=== PATIENT | male | born 1965 | race Hispanic/Latino ===

== ENCOUNTER 2018-12-30 20:53 | Inpatient (IN) | payer OTHER ==
[~2018-12-30] VITALS: Ht 170.2 cm; Wt 67.0 kg
[2018-12-30 21:21] LABS: BASOPHILS % (AUTO) 1.1 % (0.0-5.0); HEMATOCRIT 26.7 % (42-54); LYMPHOCYTES % (AUTO) 15.4 % (21.0-51.0); MEAN CORPUSCULAR HEMOGLOBIN 33.8 pg (27.0-33.0); MEAN CORPUSCULAR HGB CONC 33.7 g/dL (32.0-36.0); MEAN CORPUSCULAR VOLUME 100.3 fL (79-99); MONOCYTES % (AUTO) 13.1 % (3.0-13.0); NEUTROPHILS % (AUTO) 64.4 % (40.0-77.0); NUCLEATED RED BLOOD CELLS 0.1 % (0.0-0.19); PLATELET COUNT (AUTO) 83 K/uL (130-400); RED BLOOD CELL COUNT(AUTO) 2.66 MIL/uL (4.50-6.20); RED CELL DISTRIBUTION WIDTH 16.4 % (11.0-15.5); WHITE BLOOD COUNT (AUTO) 3.7 K/uL (4.8-10.8)
[2018-12-30 21:32] LABS: APPEARANCE,URINE Clear (CLEAR); BILIRUBIN,URINE Small (NEGATIVE); COLOR,URINE Dark Yellow (YELLOW); GLUCOSE, URINE (UA) Negative (NEGATIVE); KETONES,URINE Negative (NEGATIVE); LEUKOCYTE ESTERASE ,URINE Trace (NEGATIVE); NITRATE,URINE Negative (NEGATIVE); OCCULT BLOOD,URINE Negative (NEGATIVE); PROTEIN,URINE Trace mg/dL (NEGATIVE)
[2018-12-30 21:34] LABS: CARBON DIOXIDE 25 mmol/L (21-32); CHLORIDE 107 mmol/L (101-111); CREATININE 0.8 mg/dL (0.5-1.5); GLOMERULAR FILTR. RATE CALC 107 mL/min (>60); GLUCOSE,RANDOM 126 mg/dL (70-105); POTASSIUM 3.6 mmol/L (3.5-5.1); SODIUM SERUM 137 mmol/L (136-145); UREA NITROGEN, BLOOD 13 mg/dL (7-18)
[2018-12-30 21:37] LABS: INR 1.64 (0.85-1.15); PARTIAL THROMBOPLASTIN TIME 44.1 SEC (26.3-35.5); PROTHROMBIN TIME 17.1 SEC (9.6-11.6)
[2018-12-30 21:38] LABS: ALANINE AMINOTRANSFERASE 35 U/L (12-78); ALBUMIN 1.4 g/dL (3.5-5.0); ASPARTATE AMINOTRANSFERASE 53 U/L (10-37); BILIRUBIN,DIRECT 0.9 mg/dL (0.0-0.3); BILIRUBIN,TOTAL 1.8 mg/dL (0.2-1.0); LIPASE 233 U/L (114-286); TOTAL PROTEIN, SERUM 6.2 g/dL (6.0-8.3)
[2018-12-30 21:40] LABS: AMPHET/METH SCREEN,URINE NEGATIVE (NEGATIVE); BARBITURATE SCREEN, URINE NEGATIVE (NEGATIVE); BENZODIAZEPINES SCREEN,URINE NEGATIVE (NEGATIVE); CANNABINOID SCREEN,URINE NEGATIVE (NEGATIVE); COCAINE SCREEN,URINE NEGATIVE (NEGATIVE); OPIATE SCREEN,URINE NEGATIVE (NEGATIVE); PHENCYCLIDINE SCREEN,URINE NEGATIVE (NEGATIVE)
[2018-12-30 21:41] LABS: ALCOHOL, BLOOD < 3 mg/dL (0-10)
[2018-12-30 21:41] LABS: BACTERIA,URINE Rare /HPF (None Seen); RBC,URINE 0-1 /HPF (0-1); YEAST,URINE BUDDING Few /HPF (None Seen)
[2018-12-30 21:42] LABS: MUCUS,URINE Few LPF (None Seen); SQUAMOUS EPITHELIAL CELL,UR Rare /HPF (0-2)
[2018-12-30 22:16] LABS: PLATELET MORPHOLOGY COMMENT DECREASED
[2018-12-31] MEDS ORDERED: HYDROCODONE/ACETAMINOPHEN 5/325 MG TAB PO PRN ×2 (00:15)
[2018-12-31] MEDS ORDERED: ONDANSETRON HCL 4 MG/2 ML VIAL IV PRN (00:15)
[2018-12-31] MEDS ORDERED: ACETAMINOPHEN 325 MG TAB PO PRN ×2 (00:15)
[2018-12-31] MEDS ORDERED: FAMOTIDINE/PF 20 MG/2 ML VIAL IV ONE (08:26)
[2018-12-31] MEDS ORDERED: FUROSEMIDE 10 MG/ML 2ML VIAL ONE (08:26)
[2018-12-31] MEDS ORDERED: ENOXAPARIN SODIUM 30 MG/0.3 ML SQ ONE (08:26)
[2018-12-31] MEDS ORDERED: ENOXAPARIN SODIUM 30 MG/0.3 ML SQ SCH (09:00)
--- NOTE | 2018-12-31 10:04 | NUR ---
YANETH Aparicio met with pt who states that he was at [facility] in [place] for 2weeks and then was dc to his parents care in [place]. Pt states he arrived yesterday and was brought here last night because of his swelling. Pt states he is able to preform ADLS on his own ,uses walker. Pt is from [place], , unemployed. Brother Alex Andre is ER contact [phone] or sister in law Kellee Andre [phone]. Plan is home with family. Addendum: 12/31/18 at 1007 by EMILIA JACKSON Amended: Links added.
[2018-12-31 13:40] VITALS: BP 112/67
[2018-12-31 16:00] VITALS: BP 112/66
[2018-12-31] MEDS ORDERED: LEVO750T21 PO (18:28)
[2018-12-31] MEDS ORDERED: PANT40TA25 PO (18:28)
[2018-12-31] MEDS ORDERED: POTA-9 PO (18:28)
[2018-12-31] MEDS ORDERED: FURO20TA4 PO (18:28)
[2018-12-31] MEDS ORDERED: SPIR25TA6 PO (18:28)
[2018-12-31] MEDS ORDERED: LACT10SO9 PO (18:28)
--- NOTE | 2018-12-31 18:31 | NUR ---
PLATELET COUNT REPPORTED TO DR. LAMBERT STATED TO HOLD LOVENOX
[2018-12-31 20:00] VITALS: BP 112/63
[2018-12-31] MEDS: FAMOTIDINE/PF 20 MG/2 ML VIAL IV SCH (22:58)
[2018-12-31] MEDS: FUROSEMIDE 10 MG/ML 2ML VIAL IV SCH (22:58)
[2019-01-01] VITALS: BP 106/64
[2019-01-01 04:00] VITALS: BP 108/55
[2019-01-01 07:00] VITALS: BP 110/60
[2019-01-01] MEDS: FAMOTIDINE/PF 20 MG/2 ML VIAL IV SCH ×2 (09:02→21:52)
[2019-01-01] MEDS: FUROSEMIDE 10 MG/ML 2ML VIAL IV SCH ×2 (09:03→21:52)
[2019-01-01 11:00] VITALS: BP 105/58
[2019-01-01] MEDS ORDERED: LACTULOSE 20 GM/30 ML UDCUP PO SCH (11:00)
[2019-01-01 11:17] LABS: BASOPHILS % (AUTO) 1.4 % (0.0-5.0); EOSINOPHILS % (AUTO) 7.6 % (0.0-8.0); HEMATOCRIT 25.2 % (42-54); LYMPHOCYTES % (AUTO) 23.3 % (21.0-51.0); MEAN CORPUSCULAR HGB CONC 34.2 g/dL (32.0-36.0); MEAN CORPUSCULAR VOLUME 99.4 fL (79-99); MONOCYTES % (AUTO) 15.4 % (3.0-13.0); NEUTROPHILS % (AUTO) 52.3 % (40.0-77.0); NUCLEATED RED BLOOD CELLS 0.1 % (0.0-0.19); PLATELET COUNT (AUTO) 78 K/uL (130-400); RED BLOOD CELL COUNT(AUTO) 2.53 MIL/uL (4.50-6.20); RED CELL DISTRIBUTION WIDTH 16.3 % (11.0-15.5)
[2019-01-01 11:32] LABS: CREATININE 0.7 mg/dL (0.5-1.5); POTASSIUM 3.4 mmol/L (3.5-5.1)
[2019-01-01 11:37] LABS: ALBUMIN 1.3 g/dL (3.5-5.0); BILIRUBIN,TOTAL 1.4 mg/dL (0.2-1.0); TOTAL PROTEIN, SERUM 5.6 g/dL (6.0-8.3)
[2019-01-01 12:49] LABS: EOSINOPHILS % (MANUAL) 11 % (1-6); LYMPHOCYTES % (MANUAL) 23 % (22-44); MAN.DIFF COMMENT-IMPRESSION MANUAL DIFFERENTIAL; MONOCYTES % (MANUAL) 6 % (2-9); PLATELET MORPHOLOGY COMMENT DECREASED; SEGMENTED NEUTROPHILS % 60 % (40-70)
[2019-01-01] MEDS: LACTULOSE 20 GM/30 ML UDCUP PO SCH ×2 (15:37→21:52)
[2019-01-01 16:00] VITALS: BP 111/67
[2019-01-01 20:00] VITALS: BP 100/63
[2019-01-02] VITALS: BP 112/69
[2019-01-02 04:00] VITALS: BP 114/68
[2019-01-02] MEDS: LACTULOSE 20 GM/30 ML UDCUP PO SCH ×3 (06:18→18:13)
[2019-01-02 07:00] VITALS: BP 112/63
[2019-01-02] MEDS: FUROSEMIDE 10 MG/ML 2ML VIAL IV SCH ×2 (08:23→21:53)
[2019-01-02] MEDS: FAMOTIDINE/PF 20 MG/2 ML VIAL IV SCH ×2 (08:23→21:51)
[2019-01-02 11:00] VITALS: BP 112/63
[2019-01-02] MEDS ORDERED: LACTULOSE 20 GM/30 ML UDCUP PO SCH (11:00)
[2019-01-02] MEDS ORDERED: POTASSIUM CHLORIDE 20 MEQ ERTAB PO SCH (11:00)
[2019-01-02 16:00] VITALS: BP 108/67
[2019-01-02 20:00] VITALS: BP 112/66
[2019-01-03] VITALS (13 sets, daily range): BP systolic 97–111; BP diastolic 56–70
[2019-01-03] MEDS: LACTULOSE 20 GM/30 ML UDCUP PO SCH ×4 (01:19→23:57)
[2019-01-03 06:17] LABS: HEMATOCRIT 25.8 % (42-54); MEAN CORPUSCULAR HEMOGLOBIN 34.5 pg (27.0-33.0); MEAN CORPUSCULAR HGB CONC 34.2 g/dL (32.0-36.0); MEAN CORPUSCULAR VOLUME 100.8 fL (79-99); PLATELET COUNT (AUTO) 78 K/uL (130-400); RED BLOOD CELL COUNT(AUTO) 2.56 MIL/uL (4.50-6.20); RED CELL DISTRIBUTION WIDTH 16.1 % (11.0-15.5); WHITE BLOOD COUNT (AUTO) 2.5 K/uL (4.8-10.8)
[2019-01-03 06:36] LABS: ALBUMIN 1.4 g/dL (3.5-5.0); BILIRUBIN,TOTAL 1.6 mg/dL (0.2-1.0); CREATININE 0.8 mg/dL (0.5-1.5); POTASSIUM 3.3 mmol/L (3.5-5.1)
[2019-01-03 07:29] LABS: BASOPHILS % (MANUAL) 1 % (0-2); EOSINOPHILS % (MANUAL) 3 % (1-6); LYMPHOCYTES % (MANUAL) 20 % (22-44); MAN.DIFF COMMENT-IMPRESSION MANUAL DIFFERENTIAL; MONOCYTES % (MANUAL) 6 % (2-9); SEGMENTED NEUTROPHILS % 70 % (40-70)
[2019-01-03 07:30] LABS: PLATELET MORPHOLOGY COMMENT DECREASED
--- NOTE | 2019-01-03 08:18 | NUR ---
PARACENTESIS BY IR CONSENT SIGNED BY PATIENT FOR PARACENTESIS. SISTER IN LAW- NORMA CALLED AND INFORMED OF PROCEDURE WELL. ENDORSED POSSIBLE PROCEDURE TO DAY SHIFT NURSE, FAN Gee RN
[2019-01-03] MEDS: FAMOTIDINE/PF 20 MG/2 ML VIAL IV SCH ×2 (08:59→21:54)
[2019-01-03] MEDS: FUROSEMIDE 10 MG/ML 2ML VIAL IV SCH ×2 (09:00→21:55)
[2019-01-03] MEDS ORDERED: POTASSIUM CHLORIDE 10MEQ/100ML 100 ML IV PRN (11:30)
[2019-01-03] MEDS ORDERED: POTASSIUM CHLORIDE 10% ELIXIR 20 MEQ/15 ML UDCUP PO PRN (11:30)
[2019-01-03] MEDS ORDERED: LIDOCAINE HCL-MPF 1% 2ML VIAL IVP PRN (11:30)
[2019-01-03] MEDS ORDERED: POTASSIUM CHLORIDE 20 MEQ ERTAB PO ONE (11:50)
[2019-01-03] MEDS: POTASSIUM CHLORIDE 20 MEQ ERTAB PO PRN ×2 (13:08→17:37)
--- NOTE | 2019-01-03 15:35 | NUR ---
U/S GD PARACENTESIS PROCEDURE PERFORMED BY DR Nadia WHITE. PUNCTURE SITE LLQ AND PATIENT TOLERATED PROCEDURE WELL. TOTAL REMOVED 1.8 LITERS OF BLOOD TINGED FLUID. END OF PROCEDURE AT 1520. CATHETER REMOVED AND DRESSING APPLIED. NO BLEEDING NOTED. REPORT GIVEN TO Eric ALBARRAN RN AND PATIENT TRANSPORTED TO [facility] VIA BED AT 1535. AAO X3 WITH NO C/O PAIN.
--- NOTE | 2019-01-03 16:45 | NUR ---
Patient returned from Paracentecis. Recieved report from Leo 1.8 L of blood tinge fluid removed from LLQ. Dressing to LLQ clean dry and intact. patient alert, oriented and awake x3. VS stable. bed to lowest position. Call light placed within reach. will continue to monitor and assess
[2019-01-04 03:30] VITALS: BP 133/73
[2019-01-04] MEDS: LACTULOSE 20 GM/30 ML UDCUP PO SCH ×3 (05:20→20:34)
[2019-01-04 05:56] LABS: BASOPHILS % (AUTO) 0.5 % (0.0-5.0); EOSINOPHILS % (AUTO) 0.9 % (0.0-8.0); LYMPHOCYTES % (AUTO) 7.2 % (21.0-51.0); MEAN CORPUSCULAR VOLUME 99.8 fL (79-99); MONOCYTES % (AUTO) 4.6 % (3.0-13.0); NEUTROPHILS % (AUTO) 86.8 % (40.0-77.0); PLATELET COUNT (AUTO) 95 K/uL (130-400); RED BLOOD CELL COUNT(AUTO) 3.01 MIL/uL (4.50-6.20); RED CELL DISTRIBUTION WIDTH 16.3 % (11.0-15.5); WHITE BLOOD COUNT (AUTO) 4.9 K/uL (4.8-10.8)
[2019-01-04 06:10] LABS: CREATININE 0.8 mg/dL (0.5-1.5); POTASSIUM 3.5 mmol/L (3.5-5.1)
[2019-01-04 08:00] VITALS: BP 119/66
[2019-01-04] MEDS: FUROSEMIDE 10 MG/ML 2ML VIAL IV SCH ×2 (08:10→20:34)
[2019-01-04] MEDS: FAMOTIDINE/PF 20 MG/2 ML VIAL IV SCH ×2 (08:10→20:34)
--- NOTE | 2019-01-04 09:30 | NUR ---
Lan Kowalski HERE AND UPDATE TEMP . OF 101.1 AND HR UP TO [address] PINK TO FOLLOW .
[2019-01-04] MEDS ORDERED: FURO20TA4 PO (09:33)
[2019-01-04] MEDS ORDERED: LACT10SO9 PO (09:33)
--- NOTE | 2019-01-04 11:00 | NUR ---
BLOOD CULTURES DONE AND CHEST X -RAY . DONE.
[2019-01-04 11:59] VITALS: BP 115/62
[2019-01-04] MEDS: ZOSYN 3.375GM+NS 50ML 50 ML IV SCH ×2 (13:37→20:35)
[2019-01-04 16:00] VITALS: BP 120/60
[2019-01-04 19:35] VITALS: BP 113/62
[2019-01-04 23:35] VITALS: BP 111/59
[2019-01-05 03:40] VITALS: BP 110/58
[2019-01-05] MEDS: LACTULOSE 20 GM/30 ML UDCUP PO SCH ×4 (05:33→20:58)
[2019-01-05] MEDS: ZOSYN 3.375GM+NS 50ML 50 ML IV SCH ×3 (05:33→20:57)
[2019-01-05 06:01] LABS: BASOPHILS % (AUTO) 0.2 % (0.0-5.0); EOSINOPHILS % (AUTO) 5.4 % (0.0-8.0); HEMATOCRIT 24.5 % (42-54); LYMPHOCYTES % (AUTO) 11.2 % (21.0-51.0); MEAN CORPUSCULAR HEMOGLOBIN 34.3 pg (27.0-33.0); MEAN CORPUSCULAR VOLUME 100.9 fL (79-99); MONOCYTES % (AUTO) 8.4 % (3.0-13.0); NEUTROPHILS % (AUTO) 74.8 % (40.0-77.0); PLATELET COUNT (AUTO) 65 K/uL (130-400); RED BLOOD CELL COUNT(AUTO) 2.43 MIL/uL (4.50-6.20); RED CELL DISTRIBUTION WIDTH 16.3 % (11.0-15.5); WHITE BLOOD COUNT (AUTO) 6.8 K/uL (4.8-10.8)
[2019-01-05 06:05] LABS: CREATININE 0.8 mg/dL (0.5-1.5)
[2019-01-05 06:06] LABS: POTASSIUM 2.3 mmol/L (3.5-5.1)
[2019-01-05 08:00] VITALS: BP 102/55
[2019-01-05] MEDS: FUROSEMIDE 10 MG/ML 2ML VIAL IV SCH ×3 (09:00→20:59)
[2019-01-05] MEDS: FAMOTIDINE/PF 20 MG/2 ML VIAL IV SCH ×2 (09:04→20:57)
--- NOTE | 2019-01-05 09:30 | NUR ---
K ELVEL OF 2.3 COVERAGE PER 06/16 PROTOCOL . ALREADY STARTED AND DR. ARTEAGA AWARE OF LABS. WITH DRErna ORDERS FOR EXTRA KCL 40 MEQ PO . TO BE GIVEN AND HOLD AM LASIX . UNTIL K LEVEL IS UP. WITH CHANGES ON THE KCL PROTOCOL FOR COVERAGE . PT AAO X 3 REVIEW PLAN OF CARE. DENIES ANY PAIN. PT DOSE HAS BM AFTER THE LACTULOSE GIVEN. HX OF LIVER CIRROHISISI , ABD IS ROUND BUT SOFT TO TOUCH. PT HAS ALREADY ALSO HAD A PARACENTESIS . FOR REMOVAL OF FLUIDS . CALL LIGHT IN REACH. BED LEVEL DOWN , AND FAL L RISK REVIEW. .
[2019-01-05] MEDS ORDERED: POTASSIUM CHLORIDE 10% ELIXIR 20 MEQ/15 ML UDCUP PO ONE (10:30)
[2019-01-05 12:00] VITALS: BP 106/61
[2019-01-05] MEDS: FOLIC ACID 1 MG TABLET PO SCH ×2 (15:37→15:42)
[2019-01-05] MEDS: THIAMINE HCL 100 MG TABLET PO SCH ×2 (15:37→15:42)
[2019-01-05] MEDS: POTASSIUM CHLORIDE 20 MEQ ERTAB PO PRN ×2 (15:38→21:08)
[2019-01-05 16:00] VITALS: BP 109/65
--- NOTE | 2019-01-05 18:17 | NUR ---
Nutrition Intervention: Nutrition screen based on LOS x 6 days. Pt. admitted with Dx of Abd. distention, hepatic cirrhosis, ascites. Pt. S/P U/S guided paracentesis(01/03/19). Pt. on Heart healthy diet with 1200ml fluid rest. Pt. reports good p.o. intake. Labs reviewed(Alb 1.4, T. bili 1.6, Ammonia 59). Pt. with severe visceral protein depletion. Protein supplementation contraindicated at this time due to elevated Ammonia level. LBM: 01/05/19, loose. SR-18, elastic. BMI: 27.1, overweight. Pt. educated on Low Sodium diet and provided with education material. Pt. verbalized understanding. Recommendations: 1) Continue current diet. 2) Low sodium diet education given to patient. 3) Continue to monitor pt's nutritional status. 4) Consult RD as nutrition concerns arise. Addendum: 01/05/19 at [address] Amended: Links added.
[2019-01-05 20:00] VITALS: BP 111/65
[2019-01-06] VITALS: BP 110/56
[2019-01-06 04:00] VITALS: BP 107/54
[2019-01-06] MEDS: POTASSIUM CHLORIDE 10% ELIXIR 20 MEQ/15 ML UDCUP PO PRN ×2 (04:01→21:26)
[2019-01-06] MEDS: LACTULOSE 20 GM/30 ML UDCUP PO SCH ×3 (04:01→21:26)
[2019-01-06] MEDS: ZOSYN 3.375GM+NS 50ML 50 ML IV SCH ×3 (05:14→21:25)
[2019-01-06 05:49] LABS: BASOPHILS % (AUTO) 0.7 % (0.0-5.0); EOSINOPHILS % (AUTO) 11.5 % (0.0-8.0); LYMPHOCYTES % (AUTO) 16.8 % (21.0-51.0); MEAN CORPUSCULAR HEMOGLOBIN 34.4 pg (27.0-33.0); MEAN CORPUSCULAR HGB CONC 34.5 g/dL (32.0-36.0); MEAN CORPUSCULAR VOLUME 99.6 fL (79-99); MONOCYTES % (AUTO) 9.6 % (3.0-13.0); NEUTROPHILS % (AUTO) 61.4 % (40.0-77.0); PLATELET COUNT (AUTO) 90 K/uL (130-400); RED BLOOD CELL COUNT(AUTO) 2.61 MIL/uL (4.50-6.20); RED CELL DISTRIBUTION WIDTH 16.6 % (11.0-15.5); WHITE BLOOD COUNT (AUTO) 4.2 K/uL (4.8-10.8)
[2019-01-06 05:56] LABS: CREATININE 0.9 mg/dL (0.5-1.5)
[2019-01-06] MEDS: LIDOCAINE HCL-MPF 1% 2ML VIAL IVP PRN (06:09)
[2019-01-06] MEDS: POTASSIUM CHLORIDE 20MEQ/100ML 100 ML IV PRN (06:09)
[2019-01-06 07:00] VITALS: BP 102/56
[2019-01-06] MEDS: FAMOTIDINE/PF 20 MG/2 ML VIAL IV SCH ×2 (09:27→21:25)
[2019-01-06] MEDS: FUROSEMIDE 10 MG/ML 2ML VIAL IV SCH ×2 (09:28→21:25)
[2019-01-06 11:00] VITALS: BP 111/63
[2019-01-06] MEDS: POTASSIUM CHLORIDE 20 MEQ ERTAB PO PRN ×3 (12:13→18:38)
[2019-01-06] MEDS: THIAMINE HCL 100 MG TABLET PO SCH (15:29)
[2019-01-06] MEDS: FOLIC ACID 1 MG TABLET PO SCH (15:29)
[2019-01-06 16:00] VITALS: BP 105/54
[2019-01-06 19:56] VITALS: BP 112/66
[2019-01-07] VITALS (12 sets, daily range): BP systolic 93–117; BP diastolic 54–70
[2019-01-07] MEDS: LACTULOSE 20 GM/30 ML UDCUP PO SCH ×3 (04:56→20:32)
[2019-01-07] MEDS: ZOSYN 3.375GM+NS 50ML 50 ML IV SCH ×2 (04:57→12:29)
[2019-01-07 05:33] LABS: HEMATOCRIT 25.1 % (42-54); MEAN CORPUSCULAR HEMOGLOBIN 34.3 pg (27.0-33.0); MEAN CORPUSCULAR HGB CONC 33.9 g/dL (32.0-36.0); MEAN CORPUSCULAR VOLUME 101.1 fL (79-99); NUCLEATED RED BLOOD CELLS 0.1 % (0.0-0.19); PLATELET COUNT (AUTO) 80 K/uL (130-400); RED BLOOD CELL COUNT(AUTO) 2.48 MIL/uL (4.50-6.20); RED CELL DISTRIBUTION WIDTH 16.3 % (11.0-15.5)
[2019-01-07 06:04] LABS: ALBUMIN 1.2 g/dL (3.5-5.0); CREATININE 0.8 mg/dL (0.5-1.5); POTASSIUM 3.3 mmol/L (3.5-5.1); TOTAL PROTEIN, SERUM 5.8 g/dL (6.0-8.3)
[2019-01-07] MEDS: POTASSIUM CHLORIDE 10% ELIXIR 20 MEQ/15 ML UDCUP PO PRN (06:37)
[2019-01-07] MEDS: FUROSEMIDE 10 MG/ML 2ML VIAL IV SCH ×2 (09:00→20:32)
[2019-01-07] MEDS: FAMOTIDINE/PF 20 MG/2 ML VIAL IV SCH ×2 (09:11→20:33)
[2019-01-07] MEDS: POTASSIUM CHLORIDE 20 MEQ ERTAB PO PRN ×2 (09:29→12:28)
[2019-01-07] MEDS: THIAMINE HCL 100 MG TABLET PO SCH (13:41)
[2019-01-07] MEDS: FOLIC ACID 1 MG TABLET PO SCH (13:41)
[2019-01-07] MEDS: LEVOFLOXACIN 750 MG TABLET PO SCH (13:41)
[2019-01-07] MEDS ORDERED: POTASSIUM CHLORIDE 20 MEQ ERTAB PO SCH (14:15)
[2019-01-07] MEDS ORDERED: MIDODRINE HCL 5 MG TABLET PO SCH (14:15)
--- NOTE | 2019-01-07 15:45 | NUR ---
Leo JEFFERSON from radiology procedures called and said that there is no fluid enough to perform the paracentesis however there is a large right pleural effusion and he would like for us to obtain an order to to do a thoracentesis. Placed call to Mitchell WISDOM and she said to go ahead and proceed with the thoracentesis.
--- NOTE | 2019-01-07 16:15 | NUR ---
U/S GD RT THORACENTESIS PROCEDURE PERFORMED BY DR Nadia WHITE. PUNCTURE SITE RT POSTERIOR BACK AND PATIENT TOLERATED PROCEDURE WELL. TOTAL REMOVED 600ML OF BLOOD TINGED FLUID. END OF PROCEDURE AT 1555. CATHETER REMOVED AND DRESSING APPLIED. NO BLEEDING NOTED. POST CHEST X-RAY TAKEN AND READ BY DR Nadia WHITE. NO PNEUMOTHORAX SEEN. REPORT GIVEN TO Gus CONTRERAS RN AND PATIENT TRANSPORTED TO [facility]1 IV AW/C. AAO X3 WITH NO C/O PAIN. SPECIMEN SENT TO LAB.
[2019-01-07] MEDS: POTASSIUM CHLORIDE 20 MEQ ERTAB PO SCH (20:33)
[2019-01-07 20:56] LABS: APPEARANCE BODY FLUID CLOUDY (CLEAR); BODY FLUID WBC 225 /cu. mm.; COLOR,BODY FLUID ORANGE (LT YELLOW); SPECIMENTYPE,BODY FLUID THORACENTESIS; TOTAL VOLUME,BODY FLUID 600 mL
[2019-01-07 20:57] LABS: BODY FLUID RBC 9375 /cu. mm.
[2019-01-07 21:16] LABS: BF LYMPHOCYTE 4 %; BF MONOCYTE 9 %; BF OTHER CELLS 5
[2019-01-08 03:25] VITALS: BP 98/63
[2019-01-08] MEDS: LACTULOSE 20 GM/30 ML UDCUP PO SCH ×2 (03:52→13:09)
[2019-01-08 04:47] LABS: HEMATOCRIT 25.4 % (42-54); MEAN CORPUSCULAR HEMOGLOBIN 34.2 pg (27.0-33.0); MEAN CORPUSCULAR HGB CONC 34.1 g/dL (32.0-36.0); MEAN CORPUSCULAR VOLUME 100.4 fL (79-99); NUCLEATED RED BLOOD CELLS 0.1 % (0.0-0.19); PLATELET COUNT (AUTO) 82 K/uL (130-400); RED BLOOD CELL COUNT(AUTO) 2.53 MIL/uL (4.50-6.20); RED CELL DISTRIBUTION WIDTH 16.8 % (11.0-15.5); WHITE BLOOD COUNT (AUTO) 2.7 K/uL (4.8-10.8)
[2019-01-08 04:59] LABS: CREATININE 0.8 mg/dL (0.5-1.5)
[2019-01-08] MEDS: POTASSIUM CHLORIDE 20 MEQ ERTAB PO PRN (05:09)
[2019-01-08] MEDS: POTASSIUM CHLORIDE 20MEQ/100ML 100 ML IV PRN (05:17)
[2019-01-08] MEDS: LIDOCAINE HCL-MPF 1% 2ML VIAL IVP PRN ×2 (05:18→09:03)
[2019-01-08 08:00] VITALS: BP 88/50
[2019-01-08] MEDS: FUROSEMIDE 10 MG/ML 2ML VIAL IV SCH (08:49)
[2019-01-08] MEDS ORDERED: SODIUM CHLORIDE 0.9% 100 ML IV ONE (09:00)
[2019-01-08] MEDS: POTASSIUM CHLORIDE 20 MEQ ERTAB PO SCH (09:02)
[2019-01-08] MEDS: FAMOTIDINE/PF 20 MG/2 ML VIAL IV SCH (09:02)
[2019-01-08] MEDS: POTASSIUM CHLORIDE 10% ELIXIR 20 MEQ/15 ML UDCUP PO PRN (09:03)
[2019-01-08 12:00] VITALS: BP 126/53
[2019-01-08] MEDS: FOLIC ACID 1 MG TABLET PO SCH (13:09)
[2019-01-08] MEDS: THIAMINE HCL 100 MG TABLET PO SCH (13:09)
[2019-01-08] MEDS: LEVOFLOXACIN 750 MG TABLET PO SCH (13:09)
[2019-01-08 16:00] VITALS: BP 95/58
[2019-01-08 19:30] VITALS: BP 114/58
--- NOTE | 2019-01-08 21:30 | NUR ---
DC PROCESS PIV TO RFA DCD ASEPTICALLY,CATH COMPLETELY OUT,GOOD HEMOSTASIS DC PLAN EXPLAINED TO PT DC DOCUMENTS PROVIDED INCLUDING SCRIPT FOR ABX V/S STABLE ,AFEBRILE ,NO C/O PAIN OR DISCOMFORT Addendum: 01/08/19 at 2316 by ANA ZUNIGA RN RN Amended: Links added.
--- NOTE | 2019-01-08 21:35 | NUR ---
DC PT D/C'D IN STABLE CONDITION PER V/S , DENIES ACUTE PAIN OR DISCOMFORT , [facility] WITH FAMILY AND [facility]ER CINDY Addendum: 01/08/19 at 2317 by ANA ZUNIGA RN RN Amended: Links added.
== END 2019-01-08 21:35 | disposition home or self-care (01) | DRG 871 ==
LOC: EDH 20:53 → EDHIP 20:54 → 3DH 12-31 13:36
PROVIDERS: ADMIT Internal Medicine; ATTEND Internal Medicine
PROC: 0W9G3ZZ Drainage of Peritoneal Cavity, Percutaneous Approach (ICD-10-PCS; principal; 2019-01-03)
PROC: 0W993ZZ Drainage of Right Pleural Cavity, Percutaneous Approach (ICD-10-PCS; 2019-01-07)
DX: A41.50 Gram-negative sepsis, unspecified (principal); E43 Unspecified severe protein-calorie malnutrition; K65.2 Spontaneous bacterial peritonitis; K70.31 Alcoholic cirrhosis of liver with ascites; E87.70 Fluid overload, unspecified; E87.6 Hypokalemia; Z68.23 Body mass index [BMI] 23.0-23.9, adult
CPT/HCPCS: 32555; 36415; 49083; 71045; 71046; 76705; 80048; 80053; 80076; 80305; 81001; 82140; 82330; 83605; 83690; 83735; 84132; 85025; 85027; 85610; 85730; 87040; 87071; 87077; 87088; 87186; 87205; 88108; 88305; 89051; 93005; G0378; G0480; J1650; J1940; J2543; J3480; J3490

== ENCOUNTER 2019-01-25 06:44 | Emergency (ER) | payer OTHER ==
[~2019-01-25 06:44] MED LIST: FURO20TA4 PO; LACT10SO9 PO; PANT40TA25 PO; POTA-9 PO; SPIR25TA6 PO
[2019-01-25 07:32] LABS: BASOPHILS % (AUTO) 0.6 % (0.0-5.0); EOSINOPHILS % (AUTO) 4.7 % (0.0-8.0); HEMATOCRIT 28.2 % (42-54); LYMPHOCYTES % (AUTO) 8.4 % (21.0-51.0); MEAN CORPUSCULAR HEMOGLOBIN 33.7 pg (27.0-33.0); MEAN CORPUSCULAR HGB CONC 33.7 g/dL (32.0-36.0); MONOCYTES % (AUTO) 10.3 % (3.0-13.0); NUCLEATED RED BLOOD CELLS 0.1 % (0.0-0.19); PLATELET COUNT (AUTO) 67 K/uL (130-400); RED BLOOD CELL COUNT(AUTO) 2.82 MIL/uL (4.50-6.20); RED CELL DISTRIBUTION WIDTH 17.4 % (11.0-15.5); WHITE BLOOD COUNT (AUTO) 3.5 K/uL (4.8-10.8)
[2019-01-25 07:38] LABS: CREATININE 0.6 mg/dL (0.5-1.5); POTASSIUM 3.4 mmol/L (3.5-5.1)
[2019-01-25 07:41] LABS: APPEARANCE,URINE Clear (CLEAR); BILIRUBIN,URINE Negative (NEGATIVE); COLOR,URINE Dark Yellow (YELLOW); GLUCOSE, URINE (UA) >=1000 mg/dL (NEGATIVE); KETONES,URINE Negative (NEGATIVE); LEUKOCYTE ESTERASE ,URINE Negative (NEGATIVE); NITRATE,URINE Negative (NEGATIVE); OCCULT BLOOD,URINE Negative (NEGATIVE); PH,URINE 6.5 (5.0-8.0); PROTEIN,URINE Negative (NEGATIVE)
[2019-01-25 07:44] LABS: ALBUMIN 1.6 g/dL (3.5-5.0); BILIRUBIN,DIRECT 0.8 mg/dL (0.0-0.3); BILIRUBIN,TOTAL 1.7 mg/dL (0.2-1.0)
[2019-01-25 07:48] LABS: AMPHET/METH SCREEN,URINE NEGATIVE (NEGATIVE); BARBITURATE SCREEN, URINE NEGATIVE (NEGATIVE); BENZODIAZEPINES SCREEN,URINE NEGATIVE (NEGATIVE); CANNABINOID SCREEN,URINE NEGATIVE (NEGATIVE); COCAINE SCREEN,URINE NEGATIVE (NEGATIVE); OPIATE SCREEN,URINE NEGATIVE (NEGATIVE); PHENCYCLIDINE SCREEN,URINE NEGATIVE (NEGATIVE)
[2019-01-25 08:12] LABS: BACTERIA,URINE Few /HPF (None Seen); RBC,URINE 0-1 /HPF (0-1); WBC,URINE 0-1 /HPF (0-1)
[2019-01-25] MEDS ORDERED: KETOROLAC TROMETHAMINE 30MG/ML ONE (08:33)
[2019-01-25] MEDS ORDERED: ONDANSETRON HCL 4 MG/2 ML VIAL ONE (08:33)
== END 2019-01-25 10:56 | disposition home or self-care (01) ==
LOC: EDH 06:44
DX: R10.84 Generalized abdominal pain (principal); K74.60 Unspecified cirrhosis of liver
CPT/HCPCS: 36415; 71045; 74176; 80048; 80076; 80305; 81001; 83605; 83690; 85025; 96374; 96375; 99285; J1885; J2405

== ENCOUNTER 2019-03-08 08:19 | Day surgery (SDC) | payer OTHER ==
[~2019-03-08] VITALS: Ht 170.2 cm; Wt 69.4 kg
[~2019-03-08 08:19] MED LIST changes: +LACT10SO PO; -LACT10SO9 PO; +SODIUM CHLORIDE 0.9% 1000ML 1,000 ML IV ONE; +SPIR100T5 PO; -SPIR25TA6 PO
[2019-03-08 10:21] VITALS: BP 95/54
[2019-03-08] MEDS ORDERED: VITAMIN B1 PO (10:32)
[2019-03-08] MEDS ORDERED: MULT-1203 PO (10:32)
[2019-03-08] MEDS ORDERED: RIFA550T PO (10:32)
[2019-03-08] MEDS ORDERED: PROPOFOL 10 MG/ML 20ML VIAL IV ONE (11:13)
[2019-03-08 11:24] VITALS: BP 92/53
[2019-03-08 11:29] VITALS: BP 92/60
[2019-03-08 11:34] VITALS: BP 97/59
[2019-03-08 11:39] VITALS: BP 96/56
[2019-03-08 11:44] VITALS: BP 98/57
--- NOTE | 2019-03-08 12:05 | NUR ---
dc pt dc home via wc,no distress noted , accompanied by brother, pt denied any pain or discomforts
== END 2019-03-08 12:05 | disposition home or self-care (01) ==
LOC: DAH 08:19 → ENDO 08:19
PROVIDERS: ATTEND Internal Medicine
DX: K57.31 Diverticulosis of large intestine without perforation or abscess with bleeding (principal); K64.1 Second degree hemorrhoids; K92.1 Melena; K70.31 Alcoholic cirrhosis of liver with ascites; I85.01 Esophageal varices with bleeding; L21.9 Seborrheic dermatitis, unspecified; K72.90 Hepatic failure, unspecified without coma; F10.229 Alcohol dependence with intoxication, unspecified; Z98.0 Intestinal bypass and anastomosis status; Z79.899 Other long term (current) drug therapy
CPT/HCPCS: 45378; J2704; J7030

== ENCOUNTER 2019-04-12 06:44 | Day surgery (SDC) | payer OTHER ==
[~2019-04-12] VITALS: Ht 170.2 cm; Wt 71.3 kg
[~2019-04-12 06:44] MED LIST changes: +MULT-1203 PO; -POTA-9 PO; +RIFA550T PO; +VITAMIN B1 PO
[2019-04-12 07:44] VITALS: BP 106/63
[2019-04-12 08:53] LABS: BASOPHILS % (AUTO) 0.8 % (0.0-5.0); EOSINOPHILS % (AUTO) 10.3 % (0.0-8.0); HEMATOCRIT 26.7 % (42-54); LYMPHOCYTES % (AUTO) 17.7 % (21.0-51.0); MEAN CORPUSCULAR HEMOGLOBIN 32.9 pg (27.0-33.0); MEAN CORPUSCULAR HGB CONC 34.3 g/dL (32.0-36.0); MEAN CORPUSCULAR VOLUME 95.9 fL (79-99); MONOCYTES % (AUTO) 16.9 % (3.0-13.0); NEUTROPHILS % (AUTO) 54.3 % (40.0-77.0); PLATELET COUNT (AUTO) 65 K/uL (130-400); RED BLOOD CELL COUNT(AUTO) 2.78 MIL/uL (4.50-6.20); RED CELL DISTRIBUTION WIDTH 18.1 % (11.0-15.5); WHITE BLOOD COUNT (AUTO) 2.8 K/uL (4.8-10.8)
[2019-04-12] MEDS ORDERED: PROPOFOL 10 MG/ML 20ML VIAL IV ONE (08:56)
[2019-04-12 09:04] VITALS: BP 108/69
[2019-04-12 09:09] VITALS: BP 107/69
[2019-04-12 09:14] VITALS: BP 112/67
[2019-04-12 09:15] LABS: EOSINOPHILS % (MANUAL) 11 % (1-6); LYMPHOCYTES % (MANUAL) 29 % (22-44); MONOCYTES % (MANUAL) 11 % (2-9); SEGMENTED NEUTROPHILS % 49 % (40-70)
[2019-04-12 09:17] LABS: MAN.DIFF COMMENT-IMPRESSION MANUAL DIFFERENTIAL; PLATELET MORPHOLOGY COMMENT DECREASED
[2019-04-12 09:19] VITALS: BP 116/67
[2019-04-12 09:19] LABS: INR 1.47 (0.85-1.15); PROTHROMBIN TIME 15.2 SEC (9.6-11.6)
--- NOTE | 2019-04-12 09:30 | NUR ---
dc pt dc home via wc,no distress noted. pt denied any pain or discomforts. accompanied by his parents. dc instructions reinforced , parents/pt verbalized understanding.
== END 2019-04-12 09:30 | disposition home or self-care (01) ==
LOC: ENDO 06:44 → DAH 06:44 → ENDO 09:30
PROVIDERS: ATTEND Internal Medicine Gastroenterology
DX: I85.10 Secondary esophageal varices without bleeding (principal); K70.31 Alcoholic cirrhosis of liver with ascites; K21.9 Gastro-esophageal reflux disease without esophagitis; B18.2 Chronic viral hepatitis C; K57.30 Diverticulosis of large intestine without perforation or abscess without bleeding; K72.90 Hepatic failure, unspecified without coma; L29.9 Pruritus, unspecified; K64.1 Second degree hemorrhoids; F10.229 Alcohol dependence with intoxication, unspecified
CPT/HCPCS: 36415; 43244; 85025; 85610; A4215; A4221; A4222; A4223; A4606; A4615; A4663; J2704; J7030

== ENCOUNTER 2019-05-26 07:21 | Day surgery (SDC) | payer OTHER ==
[~2019-05-26] VITALS: Ht 170.2 cm; Wt 78.9 kg
[2019-05-26 08:35] VITALS: BP 102/56
[2019-05-26] MEDS ORDERED: GLEC1TAB PO (08:47)
[2019-05-26] MEDS ORDERED: SOFO1TAB PO (08:47)
[2019-05-26] MEDS ORDERED: HC530C TP (08:47)
[2019-05-26] MEDS ORDERED: HYDR25LI MC (08:47)
[2019-05-26] MEDS ORDERED: PROPOFOL 10 MG/ML 20ML VIAL IV ONE (09:51)
[2019-05-26 10:12] VITALS: BP 103/58
[2019-05-26 10:17] VITALS: BP 103/65
[2019-05-26 10:22] VITALS: BP 106/61
[2019-05-26 10:27] VITALS: BP 108/68
== END 2019-05-26 10:35 | disposition home or self-care (01) ==
LOC: DAH 07:21 → ENDO 07:21
PROVIDERS: ATTEND Internal Medicine Gastroenterology
DX: I85.01 Esophageal varices with bleeding (principal); K29.50 Unspecified chronic gastritis without bleeding; K70.31 Alcoholic cirrhosis of liver with ascites; K21.9 Gastro-esophageal reflux disease without esophagitis; K72.90 Hepatic failure, unspecified without coma; L29.9 Pruritus, unspecified; K57.30 Diverticulosis of large intestine without perforation or abscess without bleeding; K64.1 Second degree hemorrhoids; F10.229 Alcohol dependence with intoxication, unspecified; Z86.19 Personal history of other infectious and parasitic diseases; Z79.899 Other long term (current) drug therapy; Z98.890 Other specified postprocedural states
CPT/HCPCS: 43239; 43244; A4215; A4221; A4222; A4223; A4606; A4620; A4663; J2704; J7030

== ENCOUNTER → 2019-08-15 | Outpatient (CLI) | payer OTHER ==
[~2019-08-15] MED LIST changes: +GLEC1TAB PO; +HC530C TP; +HYDR25LI MC; -SODIUM CHLORIDE 0.9% 1000ML 1,000 ML IV ONE; +SOFO1TAB PO
[2019-08-15 10:16] LABS: BASOPHILS % (AUTO) 1.2 % (0.0-5.0); EOSINOPHILS % (AUTO) 8.7 % (0.0-8.0); HEMATOCRIT 36.5 % (42-54); LYMPHOCYTES % (AUTO) 20.5 % (21.0-51.0); MEAN CORPUSCULAR VOLUME 97.1 fL (79-99); MONOCYTES % (AUTO) 15.4 % (3.0-13.0); NEUTROPHILS % (AUTO) 54.2 % (40.0-77.0); PLATELET COUNT (AUTO) 58 K/uL (130-400); RED BLOOD CELL COUNT(AUTO) 3.76 MIL/uL (4.50-6.20); RED CELL DISTRIBUTION WIDTH 16.2 % (11.0-15.5); WHITE BLOOD COUNT (AUTO) 3.3 K/uL (4.8-10.8)
[2019-08-15 10:26] LABS: INR 1.25 (0.85-1.15)
[2019-08-15 10:29] LABS: BILIRUBIN,TOTAL 1.6 mg/dL (0.2-1.0); POTASSIUM 4.7 mmol/L (3.5-5.1); TOTAL PROTEIN, SERUM 8.3 g/dL (6.0-8.3)
[2019-08-15 11:28] LABS: PLATELET MORPHOLOGY COMMENT DECREASED
== END | disposition home or self-care (01) ==
LOC: RAH 08:49
PROVIDERS: ATTEND Internal Medicine Gastroenterology
DX: K80.20 Calculus of gallbladder without cholecystitis without obstruction (principal); K70.31 Alcoholic cirrhosis of liver with ascites
CPT/HCPCS: 36415; 76700; 80053; 82105; 85025; 85610; 93975

== ENCOUNTER → 2019-10-06 | Outpatient (CLI) | payer OTHER ==
[~2019-10-06] MED LIST changes: +IOHEXOL 350 MG/ML 100ML INFUS..BTL IV ONE
== END | disposition home or self-care (01) ==
LOC: RAH 07:17
PROVIDERS: ATTEND Internal Medicine Gastroenterology
DX: K70.31 Alcoholic cirrhosis of liver with ascites (principal); K76.6 Portal hypertension; K59.00 Constipation, unspecified; I70.0 Atherosclerosis of aorta; K44.9 Diaphragmatic hernia without obstruction or gangrene
CPT/HCPCS: 74170; Q9967

== ENCOUNTER → 2019-10-11 | Outpatient (CLI) | payer OTHER ==
[~2019-10-11] MED LIST changes: +ALBUMIN (HUMAN) 25% 200 ML IV SCH; +CYAN250014 PO; +DICY20TA11 PO; +FOLI0.4T2 PO; +FURO40TA5 PO; +HYDR-3421 PO; -IOHEXOL 350 MG/ML 100ML INFUS..BTL IV ONE; +LACT10SO9 PO; -PANT40TA25 PO; +PANT40TA55 PO
[2019-10-11 10:08] LABS: BASOPHILS % (AUTO) 0.9 % (0.0-5.0); EOSINOPHILS % (AUTO) 7.1 % (0.0-8.0); HEMATOCRIT 32.6 % (42-54); LYMPHOCYTES % (AUTO) 13.3 % (21.0-51.0); MEAN CORPUSCULAR HEMOGLOBIN 35.3 pg (27.0-33.0); MEAN CORPUSCULAR HGB CONC 35.6 g/dL (32.0-36.0); MEAN CORPUSCULAR VOLUME 99.1 fL (79-99); MONOCYTES % (AUTO) 15.7 % (3.0-13.0); NEUTROPHILS % (AUTO) 62.7 % (40.0-77.0); PLATELET COUNT (AUTO) 50 K/uL (130-400); RED BLOOD CELL COUNT(AUTO) 3.29 MIL/uL (4.50-6.20); WHITE BLOOD COUNT (AUTO) 3.2 K/uL (4.8-10.8)
[2019-10-11 10:20] LABS: INR 1.31 (0.85-1.15)
[2019-10-11 10:22] LABS: CREATININE 0.9 mg/dL (0.5-1.5); POTASSIUM 3.6 mmol/L (3.5-5.1)
[2019-10-11 10:26] LABS: ALBUMIN 2.7 g/dL (3.5-5.0); BILIRUBIN,TOTAL 1.2 mg/dL (0.2-1.0)
--- NOTE | 2019-10-11 11:30 | NUR ---
PROCEDURE PATIENT SCHEDULED FOR U/S GD PARACENTESIS. IMAGES TAKEN AND REVIEWED BY DR Nadia WHITE. NO FLUID SEEN AND PROCEDURE CANCELED. PATIENT INFORMED OF PROCEDURE OUTCOME AND VERBALIZED UNDERSTANDING.
== END | disposition home or self-care (01) ==
LOC: RAH 09:06
PROVIDERS: ATTEND Internal Medicine Gastroenterology
DX: R18.8 Other ascites (principal); B18.2 Chronic viral hepatitis C
CPT/HCPCS: 36415; 76705; 80053; 85025; 85610; 87522; P9046

== ENCOUNTER → 2020-09-13 | Outpatient (CLI) | payer OTHER ==
[~2020-09-13] MED LIST changes: -ALBUMIN (HUMAN) 25% 200 ML IV SCH; -FOLI0.4T2 PO; +FOLI0.4T6 PO; -FURO20TA4 PO; -GLEC1TAB PO; -HC530C TP; -HYDR25LI MC; +IOHEXOL-350 75 ML VIAL IV ONE; -LACT10SO PO; -MULT-1203 PO; -PANT40TA55 PO; -RIFA550T PO; -SOFO1TAB PO; -VITAMIN B1 PO
== END | disposition home or self-care (01) ==
LOC: RAH 07:28
PROVIDERS: ATTEND Internal Medicine Transplant Hepatology
DX: B18.2 Chronic viral hepatitis C (principal); K74.69 Other cirrhosis of liver; C22.0 Liver cell carcinoma; R16.1 Splenomegaly, not elsewhere classified; R16.0 Hepatomegaly, not elsewhere classified
CPT/HCPCS: 74170; Q9967

== ENCOUNTER → 2021-06-24 | Outpatient (CLI) | payer MEDICARE ==
[~2021-06-24] MED LIST changes: -DICY20TA11 PO; +DICY20TA3 PO; -IOHEXOL-350 75 ML VIAL IV ONE
== END | disposition home or self-care (01) ==
LOC: RAH 07:43
PROVIDERS: ATTEND Internal Medicine Gastroenterology
DX: K70.31 Alcoholic cirrhosis of liver with ascites (principal); K80.20 Calculus of gallbladder without cholecystitis without obstruction; R16.1 Splenomegaly, not elsewhere classified
CPT/HCPCS: 76700; 93975

== ENCOUNTER 2021-10-03 13:24 | Emergency (ER) | payer OTHER, MEDICARE ==
[~2021-10-03] VITALS: Ht 170.2 cm; Wt 83.5 kg
[2021-10-03 13:51] LABS: BASOPHILS % (AUTO) 0.7 % (0.0-5.0); EOSINOPHILS % (AUTO) 2.9 % (0.0-8.0); HEMATOCRIT 36.7 % (42-54); LYMPHOCYTES % (AUTO) 23.6 % (21.0-51.0); MEAN CORPUSCULAR HEMOGLOBIN 35.7 pg (27.0-33.0); MEAN CORPUSCULAR HGB CONC 34.9 g/dL (32.0-36.0); MEAN CORPUSCULAR VOLUME 102.2 fL (79-99); MONOCYTES % (AUTO) 10.9 % (3.0-13.0); NEUTROPHILS % (AUTO) 61.9 % (40.0-77.0); PLATELET COUNT (AUTO) 40 K/uL (130-400); RED BLOOD CELL COUNT(AUTO) 3.59 MIL/uL (4.50-6.20); RED CELL DISTRIBUTION WIDTH 13.9 % (11.0-15.5); WHITE BLOOD COUNT (AUTO) 2.8 K/uL (4.8-10.8)
[2021-10-03 14:05] LABS: BILIRUBIN,TOTAL 2.7 mg/dL (0.2-1.0); CREATININE 0.7 mg/dL (0.5-1.5); POTASSIUM 3.9 mmol/L (3.5-5.1); TOTAL PROTEIN, SERUM 7.2 g/dL (6.0-8.3)
[2021-10-03] MEDS ORDERED: IOHEXOL-350 75 ML VIAL IV ONE (14:17)
[2021-10-03 14:48] LABS: APPEARANCE,URINE CLEAR (CLEAR); BILIRUBIN,URINE NEGATIVE (NEGATIVE); COLOR,URINE YELLOW (YELLOW); GLUCOSE, URINE (UA) NEGATIVE (NEGATIVE); KETONES,URINE NEGATIVE (NEGATIVE); LEUKOCYTE ESTERASE ,URINE NEGATIVE (NEGATIVE); NITRATE,URINE NEGATIVE (NEGATIVE); OCCULT BLOOD,URINE NEGATIVE (NEGATIVE); PROTEIN,URINE NEGATIVE (NEGATIVE); UROBILINOGEN,URINE 0.2 mg/dL (0.2-1.0)
[2021-10-03 14:59] LABS: BAND NEUTROPHILS % (MANUAL) 3 % (0-2); EOSINOPHILS % (MANUAL) 3 % (1-6); LYMPHOCYTES % (MANUAL) 14 % (22-44); MAN.DIFF COMMENT-IMPRESSION MANUAL DIFFERENTIAL; MONOCYTES % (MANUAL) 9 % (2-9); REACTIVE LYMPHOCYTES 4 % (0-0); SEGMENTED NEUTROPHILS % 67 % (40-70)
[2021-10-03 15:01] LABS: PLATELET MORPHOLOGY COMMENT MARKED DECREASE
[2021-10-03 16:20] VITALS: BP 135/74
== END 2021-10-03 16:22 | disposition home or self-care (01) ==
LOC: EDH 13:24
DX: R10.32 Left lower quadrant pain (principal); K21.9 Gastro-esophageal reflux disease without esophagitis; Z98.890 Other specified postprocedural states; Z93.3 Colostomy status; Z79.899 Other long term (current) drug therapy
CPT/HCPCS: 36415; 74177; 80053; 81003; 82140; 83690; 85025; 99285; Q9967

== ENCOUNTER → 2022-01-16 | Outpatient (CLI) | payer OTHER, MEDICARE | END | disposition home or self-care (01) | LOC: RAH 07:34 | PROVIDERS: ATTEND Transplant Surgery | DX: K74.69 Other cirrhosis of liver (principal); Z76.82 Awaiting organ transplant status; R18.8 Other ascites; C22.0 Liver cell carcinoma | CPT/HCPCS: 70486 ==

== ENCOUNTER → 2022-05-30 | Outpatient (CLI) | payer OTHER, MEDICARE | END | disposition home or self-care (01) | LOC: RAH 08:07 | PROVIDERS: ATTEND Internal Medicine Gastroenterology | DX: K80.20 Calculus of gallbladder without cholecystitis without obstruction (principal); K70.31 Alcoholic cirrhosis of liver with ascites | CPT/HCPCS: 76700; 93975 ==

== ENCOUNTER → 2022-07-04 | Emergency (ER) | payer MEDICARE, OTHER ==
[~2022-07-04] VITALS: Ht 170.2 cm; Wt 82.1 kg
[~2022-07-04] MED LIST changes: +LACTULOSE 20 GM/30 ML UDCUP PO ONE
[2022-07-04 15:16] VITALS: BP 137/71
[2022-07-04 16:01] LABS: EOSINOPHILS % (AUTO) 3.4 % (0.0-8.0); HEMATOCRIT 35.5 % (42-54); LYMPHOCYTES % (AUTO) 19.7 % (21.0-51.0); MEAN CORPUSCULAR HEMOGLOBIN 35.4 pg (27.0-33.0); MEAN CORPUSCULAR HGB CONC 35.2 g/dL (32.0-36.0); MEAN CORPUSCULAR VOLUME 100.6 fL (79-99); MONOCYTES % (AUTO) 15.3 % (3.0-13.0); NEUTROPHILS % (AUTO) 60.6 % (40.0-77.0); PLATELET COUNT (AUTO) 40 K/uL (130-400); RED BLOOD CELL COUNT(AUTO) 3.53 MIL/uL (4.50-6.20); RED CELL DISTRIBUTION WIDTH 14.3 % (11.0-15.5)
[2022-07-04 16:16] LABS: CREATININE 0.8 mg/dL (0.5-1.5); POTASSIUM 3.9 mmol/L (3.5-5.1)
[2022-07-04 16:21] LABS: ALBUMIN 2.8 g/dL (3.5-5.0); TOTAL PROTEIN, SERUM 6.9 g/dL (6.0-8.3)
[2022-07-04 16:27] LABS: BAND NEUTROPHILS % (MANUAL) 4 % (0-2); EOSINOPHILS % (MANUAL) 8 % (1-6); LYMPHOCYTES % (MANUAL) 16 % (22-44); MAN.DIFF COMMENT-IMPRESSION MANUAL DIFFERENTIAL; MONOCYTES % (MANUAL) 9 % (2-9); PLATELET MORPHOLOGY COMMENT MARKED DECREASE; REACTIVE LYMPHOCYTES 1 % (0-0); SEGMENTED NEUTROPHILS % 62 % (40-70)
[2022-07-04 16:55] LABS: INR 1.31 (0.85-1.15); PROTHROMBIN TIME 14.1 SEC (9.6-11.6)
[2022-07-04 16:56] LABS: PARTIAL THROMBOPLASTIN TIME 32.4 SEC (26.3-35.5)
== END ==
LOC: EDH 15:15
DX: R10.9 Unspecified abdominal pain (principal); K21.9 Gastro-esophageal reflux disease without esophagitis; Z85.9 Personal history of malignant neoplasm, unspecified; Z87.898 Personal history of other specified conditions; Z79.899 Other long term (current) drug therapy; Z98.890 Other specified postprocedural states
CPT/HCPCS: 36415; 80053; 82140; 85025; 85610; 85730

== ENCOUNTER → 2023-04-07 | Outpatient (CLI) | payer MEDICARE ==
[~2023-04-07] MED LIST changes: +IOHEXOL 350 MG/ML 100ML INFUS..BTL IV ONE; -LACTULOSE 20 GM/30 ML UDCUP PO ONE
== END | disposition home or self-care (01) ==
LOC: RAH 10:32
PROVIDERS: ATTEND Internal Medicine Gastroenterology
DX: R18.8 Other ascites (principal); K70.30 Alcoholic cirrhosis of liver without ascites; R93.3 Abnormal findings on diagnostic imaging of other parts of digestive tract; M47.815 Spondylosis without myelopathy or radiculopathy, thoracolumbar region; K44.9 Diaphragmatic hernia without obstruction or gangrene; R16.1 Splenomegaly, not elsewhere classified; I86.8 Varicose veins of other specified sites; I85.00 Esophageal varices without bleeding; K80.20 Calculus of gallbladder without cholecystitis without obstruction; I70.0 Atherosclerosis of aorta
CPT/HCPCS: 74170; Q9967

== ENCOUNTER → 2024-08-31 | Outpatient (CLI) | payer MEDICARE ==
[~2024-08-31] MED LIST changes: -IOHEXOL 350 MG/ML 100ML INFUS..BTL IV ONE; +IOHEXOL-350 75 ML VIAL IV ONE
--- NOTE | 2024-08-31 12:01 | HMCIMG ---
CT ABDOMEN WITH CONTRAST. CT PELVIS WITH CONTRAST INDICATION: Other cirrhosis of liver TECHNIQUE: Routine transaxial images using 5 mm slice thickness were obtained after the intravenous infusion of 75 mL of Omnipaque 350 without adverse effects. Oral contrast was not administered. Rectal contrast was not administered. Coronal and sagittal reformatted images acquired for interpretation. CT was performed with one or more of the following dose reduction techniques: Automated exposure control, adjustment of the mA and/or kV according to patient size, or use of iterative reconstruction technique. COMPARISON: 11/12/2023 FINDINGS: ABDOMEN: Heart size is normal. Visible lung bases are clear. The liver is normal in size and slightly nodular in contour without lesions. Migrated biliary stent into the duodenum and intrahepatic and extrahepatic biliary duct dilation. Early nominal gastroesophageal varices. The spleen is slightly enlarged. Splenorenal shunt noted. The gallbladder is absent. The pancreas appears normal without pancreatic duct dilation. The adrenal glands appear normal. Both kidneys appear unremarkable. Cortical nephrograms are symmetric and normal in appearance bilaterally. No evidence for intra-abdominal free air or organized fluid collection. No retrocrural, intraabdominal, or retroperitoneal lymphadenopathy identified. No aortic aneurysmal dilation or dissection identified. PELVIS: No evidence for free air or organized pelvic fluid collection. No significant pelvic adenopathy detected. Rectosigmoid anastomosis appears normal. Moderate stool burden. Terminal ileum anastomosis appears normal. Terminal ileum appears normal. The appendix appears normal. The urinary bladder is nearly empty. Visible osseous structures are intact. IMPRESSION: 1. Migrated biliary stent into the duodenum and intrahepatic and extrahepatic biliary duct dilation. 2. Findings consistent with known underlying liver disease without any enhancing lesion/mass, mild splenic enlargement, splenorenal shunt, and early nominal gastroesophageal varices, without ascites. 3. Moderate constipation.
--- NOTE | 2024-08-31 12:02 | HMCIMG ---
CT CHEST WITHOUT CONTRAST INDICATION: Other cirrhosis of liver TECHNIQUE: Routine axial images using 5 mm slice thickness were acquired from the lung apices to the bases without the administration of IV contrast.Coronal and sagittal reformatted images acquired for interpretation. CT was performed with one or more of the following dose reduction techniques: Automated exposure control, adjustment of the mA and/or kV according to patient size, or use of iterative reconstruction technique. COMPARISON: None FINDINGS: The heart size is normal. No pericardial effusion noted. The visualized great vessels and thoracic aorta are within normal limits. The trachea and airways are patent. No evidence for pulmonary nodule, consolidation, cavitary lesion, or other abnormal pulmonary parenchymal opacity. No axillary, hilar, or mediastinal lymphadenopathy. No pleural effusion or pneumothorax identified. Visible osseous structures are intact. IMPRESSION: No evidence for any acute cardiopulmonary process.
== END | disposition home or self-care (01) ==
LOC: RAH 09:10
PROVIDERS: ATTEND Transplant Surgery
DX: C22.0 Liver cell carcinoma (principal); K74.69 Other cirrhosis of liver; I85.00 Esophageal varices without bleeding; K76.6 Portal hypertension; I81 Portal vein thrombosis; K59.00 Constipation, unspecified; Z76.82 Awaiting organ transplant status; Z94.4 Liver transplant status; Z90.49 Acquired absence of other specified parts of digestive tract
CPT/HCPCS: 71250; 74177; Q9967

== ENCOUNTER 2025-01-25 09:39 | Emergency (ER) | payer MEDICARE, OTHER ==
[~2025-01-25] VITALS: Ht 170.2 cm; Wt 74.8 kg
[~2025-01-25 09:39] MED LIST changes: -IOHEXOL-350 75 ML VIAL IV ONE
[2025-01-25 10:05] LABS: IMMATURE GRANULOCYTE ABSOLUTE 0.01 K/uL (0-1); NUCLEATED RED BLOOD CELLS 0.0 % (0.0-0.19); PLATELET COUNT (AUTO) 134 K/uL (130-400); RED BLOOD CELL COUNT(AUTO) 4.53 MIL/uL (4.50-6.20); RED CELL DISTRIBUTION WIDTH 15.3 % (11.0-15.5); WHITE BLOOD COUNT (AUTO) 3.0 K/uL (4.8-10.8)
[2025-01-25 10:13] LABS: CREATININE 0.8 mg/dL (0.5-1.3); GLOMERULAR FILTR. RATE CALC 101.0 mL/min (>90); GLUCOSE,RANDOM 93.0 mg/dL (70-105); SODIUM SERUM 144.0 mmol/L (136-145); UREA NITROGEN, BLOOD 13.0 mg/dL (7-18)
--- NOTE | 2025-01-25 10:17 | ERN ---
General Chief Complaint: Diarrhea Stated Complaint: DIARRHEA Time Seen by MD: 09:42 Source: patient History of Present Illness Initial Comments PATIENT IS A 59-YEAR-OLD MALE COMING IN COMPLAINING OF DIARRHEA. PATIENT DOES HAS A HISTORY OF TRANSPLANT HAS BEEN HAVING DIARRHEA FOR ONE MONTH. No fever or chills. Allergies: Coded Allergies: No Known Drug Allergies (Unverified Allergy, Unknown, 12/31/18) Home Meds Reported Medications Hydroxyzine HCl (Hydroxyzine HCl) 25 Mg Tablet, 25 MG PO BID, TAB 12/08/19 Cyanocobalamin (Vitamin B-12) (Vitamin B12) 2,500 Mcg Tab.chew, 1000 MCG PO DAILY, TAB.CHEW 12/08/19 Dicyclomine HCl (Dicyclomine HCl) 20 Mg Tablet, 20 MG PO BID, TAB 12/08/19 Folic Acid (Folic Acid) 0.4 Mg Tablet, 1 MG PO DAILY, TAB 12/08/19 Lactulose (Lactulose) 20 Gm/30 Ml Solution, 20 GM PO BID, ML 12/08/19 Furosemide (Furosemide) 40 Mg Tablet, 40 MG PO BID, TAB 12/08/19 Spironolactone (Spironolactone) 100 Mg Tablet, 100 MG PO DAILY, TAB 02/05/19 Past Medical History Past Medical History: No Pertinent History Medical History Other: CIRRHOSIS, ASCITES, VARICES, HEP C, LIVER CA, GALLSTONES, HEMORRHOIDS Past Surgical History: Other Surgical History Other: LIVER TRANSPLANT ROS Dictation CONSTITUTIONAL: No chills, no fever, no weakness, no diaphoresis, no malaise. HEAD/FACE: No signs of trauma. EENT: No eye pain, no blurred vision, no tearing, no double vision, no ear pain, no ear discharge, no nose pain, no nasal congestion, no throat pain, no throat swelling, no mouth pain. RESPIRATORY: No cough, no orthopnea, no SOB, no stridor, no wheezing. CARDIOVASCULAR: No chest pain, no edema, no palpitations, no syncope. GASTROINTESTINAL/ABDOMINAL: No abdominal pain, no constipation, diarrhea, no nausea, no vomiting. GENITOURINARY: No abnormal discharge, no dysuria, no frequent urination, no hematuria. No complaints of pain in the genitals. MUSCULOSKELETAL: No back pain, no gout, no joint pain, no joint swelling, no muscle pain, no muscle stiffness, no neck pain. INTEGUMENTARY: No change in color, no change in hair/nails, no dryness, no lesion, no lumps, no rash. NEUROLOGICAL/PSYCH: No anxiety, not depressed, no emotional problem, no headache, no numbness, no pre-existing deficit, no history of seizures, no tremors, no weakness. HEMATOLOGIC/LYMPHATIC: Not anemic, no history of blood clots, no apparent bleeding, no bruising, glands not swollen. All Systems Negative, Except as Noted. Physical Exam Physical Exam Dictation VITAL SIGNS: Reviewed. GENERAL APPEARANCE: Alert, oriented x3, no acute distress, obese. HEAD AND FACE: Non-traumatic. EYES: PERRL, pink conjunctivas, eyelid no trauma, anterior chamber clear. EARS: Pinnas intact and no signs of trauma or erythema. Ear canals clear and no discharge. TMs no erythema. NOSE: No discharge, no bleeding. OROPHARYNX: Mouth normal, teeth no caries, tongue pink. Pharynx clear, no erythema. Tonsils no exudates, no abscesses noted. Mucous membrane moist. NECK: Supple, non-tender, no thyromegaly, no masses, no JVD, no bruits. BREAST: Deferred. CHEST: No tenderness, no crepitus, no paradoxical movement, no retractions. LUNGS: Clear, well-ventilated, symmetric, no rales, no wheezing, no rhonchi, no stridor, good breath sounds bilaterally. HEART: Regular rate, regular rhythm, no murmur, no gallops. VASCULAR: No peripheral edema. ABDOMEN: Soft, positive bowel sounds, nondistended, no guarding, nontender, no rebound, no masses no hepatomegaly, no splenomegaly, no White's sign, no hernias. RECTAL: Deferred. GENITAL: Deferred. NEUROLOGICAL: Normal speech, gross motor function intact, gross sensory function intact. MUSCULOSKELETAL: Neck nontender, full range of motion, back nontender, full range of motion. EXTREMITIES: Nontender, full range of motion. SKIN: Color pink, dry, no turgor, no rash, no lacerations, no abrasions, no contusions. LYMPHATICS: Deferred. Results Laboratory and Microbiology Lab and Micro Result Laboratory Tests Test 01/25/25 10:00 01/25/25 11:35 White Blood Count 3.0 K/uL (4.8-10.8) L Red Blood Count 4.53 MIL/uL (4.50-6.20) Hemoglobin 12.4 g/dL (14.0-18.0) L Hematocrit 36.5 % (42-54) L Mean Corpuscular Volume 80.6 fL (79-99) Mean Corpuscular Hemoglobin 27.4 pg (27.0-33.0) Mean Corpuscular Hemoglobin Concent 34.0 g/dL (32.0-36.0) Red Cell Distribution Width 15.3 % (11.0-15.5) Platelet Count 134 K/uL (130-400) Mean Platelet Volume 11.8 fL (7.5-10.5) H Immature Granulocyte % (Auto) 0.3 % (0-1) Neutrophils (%) (Auto) 59.2 % (40.0-77.0) Lymphocytes (%) (Auto) 28.6 % (21.0-51.0) Monocytes (%) (Auto) 8.9 % (3.0-13.0) Eosinophils (%) (Auto) 2.3 % (0.0-8.0) Basophils (%) (Auto) 0.7 % (0.0-5.0) Neutrophils # (Auto) 1.8 K/uL (1.8-7.7) Lymphocytes # (Auto) 0.9 K/uL (1.0-4.8) L Monocytes # (Auto) 0.3 K/uL (0.1-1.0) Eosinophils # (Auto) 0.07 K/uL (0.00-0.70) Basophils # (Auto) 0.02 K/uL (0.00-0.20) Absolute Immature Granulocyte (auto 0.01 K/uL (0-1) Segmented Neutrophils % 66 % (40-70) Lymphocytes % (Manual) 23 % (22-44) Monocytes % (Manual) 8 % (2-9) Eosinophils % (Manual) 2 % (1-6) Nucleated Red Blood Cells 0.0 % (0.0-0.19) Differential Comment MANUAL DIFFERENTIAL Reactive Lymphocytes 1 % (0-0) H White Cell Morphology Comment Platelet Morphology Comment ADEQUATE Red Blood Cell Morphology ANISO 1+ Sodium Level 144 mmol/L (136-145) Potassium Level 3.3 mmol/L (3.5-5.1) L Chloride Level 107 mmol/L (101-111) Carbon Dioxide Level 28 mmol/L (21-32) Blood Urea Nitrogen 13 mg/dL (7-18) Creatinine 0.8 mg/dL (0.5-1.3) Glomerular Filtration Rate Calc 101 mL/min (>90) Random Glucose 93 mg/dL (70-105) Total Calcium 8.8 mg/dL (8.5-10.1) Total Bilirubin 0.5 mg/dL (0.2-1.0) Aspartate Amino Transf (AST/SGOT) 12 U/L (10-37) Alanine Aminotransferase (ALT/SGPT) 15 U/L (12-78) Alkaline Phosphatase 132 U/L (50-136) Total Creatine Kinase 87 U/L (21-232) Total Protein 7.3 g/dL (6.0-8.3) Albumin 4.0 g/dL (3.5-5.0) Lipase 20 U/L (16-77) Urine Color YELLOW (YELLOW) Urine Appearance CLEAR (CLEAR) Urine pH 6.0 (5.0-8.0) Urine Specific [place] 1.030 (1.001-1.031) Urine Protein 30 mg/dL (NEGATIVE) H Urine Glucose (UA) NEGATIVE mg/dL (NEGATIVE) Urine Ketones NEGATIVE mg/dL (NEGATIVE) Urine Occult Blood +- (TRACE) (NEGATIVE) H Urine Nitrate NEGATIVE (NEGATIVE) Urine Bilirubin NEGATIVE mg/dL (NEGATIVE) Urine Urobilinogen 0.2 mg/dL (0.2-1.0) Urine Leukocyte Esterase NEGATIVE Terence/uL Urine RBC 6-10 /HPF (0-1) H Urine WBC 2-5 /HPF (0-1) H Urine Squamous Epithelial Cells RARE /HPF (0-2) Urine Bacteria None /HPF (None Seen) Stool Occult Blood NEGATIVE (NEGATIVE) Labs Reviewed?: Yes MDM MDM: Differential diagnosis: Chronic diarrhea, diarrhea, Rationale: Tests considered and ordered secondary to shared decision making include: Previous outside records reviewed: Old ER visits. Risk of complication and/or morbidity or mortality of patient management: None Medications-Per medication reconciliation Need for hospitalization: Patient does not meet criteria for hospitalization. Need for emergency major/minor surgery: No Patient is a 59-year-old male coming in complaining of chronic diarrhea. Laboratory workup within normal limits. Patient will be discharged in stable condition once he was hydrated he states he feels much better. He does has a history of liver transplant. Patient has been asymptomatic throughout ER visit we will be discharged in stable condition. ED Course Orders Procedure Category Date Status Time Cbc With Differential LAB 01/25/25 Complete 09:43 Comprehensive LAB 01/25/25 Complete Metabolic Panel 09:43 Urinalysis Profile LAB 01/25/25 Complete 09:43 Creatine Kinase, Total LAB 01/25/25 Complete 09:43 Stool Culture ABDELRAHMAN 01/25/25 In Process 09:43 Lipase LAB 01/25/25 Complete 09:43 Pantoprazole 40mg Inj PHA 01/25/25 Complete (Protonix 40mg Inj 10:00 Manual Differential LAB 01/25/25 Complete 10:00 0.9% Nacl 500ml PHA 01/25/25 Complete Iv.Soln (Ns 500ml 11:30 Occult Blood Stool LAB 01/25/25 Complete Single Only 11:43 Current Medications Medications (Trade) Dose Ordered Sig/Juan Route PRN Reason Start Time Stop Time Status Last Admin Dose Admin Pantoprazole Sodium (PROTonix 40MG INJ) 40 mg ONCE ONCE IVP 01/25/25 10:00 01/25/25 10:01 DC 01/25/25 10:24 Sodium Chloride 500 ml @ 0 mls/hr ONCE ONCE IV 01/25/25 11:30 01/25/25 11:31 DC 01/25/25 11:28 Vital Signs Date Time Temp Pulse Resp B/P (MAP) Pulse Ox O2 Delivery O2 Flow Rate FiO2 01/25/25 12:28 98.2 58 16 114/65 100 Room Air* 0 21 01/25/25 11:26 60 18 113/71 99 Room Air* 0 21 01/25/25 09:41 97.7 69 19 125/78 99 Room Air 0 DX & DISP Disposition: Discharge Departure Impression: Primary Impression: History of cirrhosis of liver Additional Impression: Chronic diarrhea Condition: Stable Additional Instructions: FOLLOW-UP WITH PRIMARY CARE PROVIDER IN 1 TO 2 DAYS. TAKE MEDICATIONS DIRECTED HERE IN THE EMERGENCY ROOM. OKAY TO CONTINUE HOME MEDICATIONS UNLESS OTHERWISE DISCUSSED DURING YOUR VISIT IN THE EMERGENCY ROOM TODAY. RETURN TO YOUR NEAREST EMERGENCY ROOM IF SYMPTOMS WORSEN OR IF THERE IS NO IMPROVEMENT. CALL 911 IF YOU NEED IMMEDIATE ASSISTANCE. TAKE TYLENOL [id number] NEEDED AND IF NO CONTRAINDICATIONS ARE PRESENT. INCREASE ORAL HYDRATION. A WOUND CULTURE OR URINE CULTURE WAS ORDERED HERE IN THE EMERGENCY ROOM DEPARTMENT PLEASE FOLLOW-UP WITH PRIMARY CARE PROVIDER AND ADVISE THEM TO GET REPORTS FROM OUR FACILITY. IF YOU HAD ANY CARLOS WRAP/SPLINTS THAT WERE APPLIED HERE, PLEASE DO NOT REMOVE THEM UNTIL YOU SEE YOUR PRIMARY CARE OR SPECIALTY. Referrals: Referrals: VERONICA FRIAS MD (PCP) Time of Disposition: 13:05 LUCÍA GAINES MD Jan 25, 2025 10:16
[2025-01-25 10:18] LABS: ASPARTATE AMINOTRANSFERASE 12.0 U/L (10-37); CREATINE KINASE, TOTAL 87.0 U/L (21-232); TOTAL PROTEIN, SERUM 7.3 g/dL (6.0-8.3)
[2025-01-25] MEDS: 0.9% NACL 500ML IV.SOLN 500 ML IV ONE (11:28)
[2025-01-25 11:40] LABS: EOSINOPHILS % (MANUAL) 2 % (1-6); LYMPHOCYTES % (MANUAL) 23 % (22-44); MAN.DIFF COMMENT-IMPRESSION MANUAL DIFFERENTIAL; MONOCYTES % (MANUAL) 8 % (2-9); REACTIVE LYMPHOCYTES 1 % (0-0); SEGMENTED NEUTROPHILS % 66 % (40-70)
[2025-01-25 11:41] LABS: PLATELET MORPHOLOGY COMMENT ADEQUATE
[2025-01-25 12:02] LABS: APPEARANCE,URINE CLEAR (CLEAR); GLUCOSE, URINE (UA) NEGATIVE (NEGATIVE); LEUKOCYTE ESTERASE ,URINE NEGATIVE Leu/uL (NEGATIVE); NITRATE,URINE NEGATIVE (NEGATIVE); OCCULT BLOOD,URINE +- (TRACE) (NEGATIVE)
[2025-01-25 12:10] LABS: ADD UA MICROSCOPIC YES
[2025-01-25 12:13] LABS: SQUAMOUS EPITHELIAL CELL,UR RARE /HPF (0-2)
[2025-01-25 13:30] VITALS: BP 112/71; PULSE 68; RESP 16; TEMP 98.2; O2SAT 99
== END 2025-01-25 13:33 | disposition home or self-care (01) ==
LOC: EDH 09:39
DX: K74.60 Unspecified cirrhosis of liver (principal); R19.7 Diarrhea, unspecified; Z79.899 Other long term (current) drug therapy; Z94.4 Liver transplant status
CPT/HCPCS: 99283; 96374; 82270; 82550; 80053; 83690; 85025; 87046; 81001; 36415; J2470; 96361

== ENCOUNTER → 2025-03-07 | Outpatient (CLI) | payer OTHER ==
[~2025-03-07] MED LIST changes: +IOHEXOL-350 75 ML VIAL IV ONE
--- NOTE | 2025-03-08 14:08 | HMCIMG ---
EXAM: CT Abdomen and Pelvis with and without IV contrast CLINICAL HISTORY: Liver cell carcinoma TECHNIQUE: Axial computed tomography images of the abdomen and pelvis with and without intravenous contrast. CONTRAST: with and without intravenous contrast. COMPARISON: Study dated 08/31. FINDINGS: LUNG BASES: Dependent airway disease along bilateral lower lobes, presumed to represent basal atelectasis. LIVER: Post liver transplant status. No focal hepatic lesions. GALLBLADDER AND BILE DUCTS: Cholecystectomy. Mild intra- and extra-hepatic biliary ductal dilatation. PANCREAS: Unremarkable. Hyperdense clips in the region of the ampulla. SPLEEN: The spleen is enlarged and measures 12.5 cm. Tiny calcified granulomas are present in the spleen. ADRENAL GLANDS: Unremarkable. KIDNEYS, URETERS, AND BLADDER: The kidneys appear within normal limits. There is no hydronephrosis or hydroureter. No urinary calculi are seen. STOMACH AND BOWEL: Right-sided inguinal hernia. Tiny fluid collection measuring 2.6 x 1.9 cm in the left iliac region. Diffuse gastric wall thickening. No evidence of bowel obstruction. Deficient right lateral abdominal wall. PERITONEUM: Areas of symmetric fat density in the pelvis region, compressing the urinary bladder anteriorly, suggest pelvic lipomatosis. No free fluid. No free air. LYMPH NODES: No lymphadenopathy is evident. REPRODUCTIVE: Unremarkable as visualized. VASCULATURE: No evidence of abdominal aortic aneurysm. BONES: Degenerative changes in the visualized spine in the form of marginal osteophytes and degenerative discs at multiple lumbar levels. No aggressive appearing osseous lesion. No acute osseous pathology evident. IMPRESSION: 1. Post liver transplant status with mild intra- and extra-hepatic biliary ductal dilatation. No focal hepatic lesions. 2. Right-sided inguinal hernia and deficient right lateral abdominal wall. 3. Small fluid collection in the left iliac region, measuring 2.6 x 1.9 cm. 4. Diffuse gastric wall thickening. 5. Mild splenomegaly. 6. Pelvic lipomatosis. /[place]
--- NOTE | 2025-03-08 14:14 | HMCIMG ---
EXAM: CT Chest Without IV contrast. CLINICAL HISTORY: Liver cell carcinoma TECHNIQUE: Axial computed tomography images of the chest without intravenous contrast. COMPARISON: None provided. FINDINGS: LUNGS: Dependent airway disease along bilateral lower lobes, presumed to represent basal atelectasis. No pulmonary mass. PLEURAL SPACES: No evidence of pneumothorax. No pleural effusion. HEART: No cardiomegaly. No significant pericardial effusion. LYMPH NODES: No lymphadenopathy is evident. UPPER ABDOMEN: The upper abdominal solid organs are unremarkable. BONES: Degenerative changes in the visualized spine. No acute osseous abnormality. IMPRESSION: No pulmonary nodules or masses. No pulmonary infiltrates or pleural effusions. No thoracic lymphadenopathy. /[place]
== END | disposition home or self-care (01) ==
LOC: RAH 07:01
PROVIDERS: ATTEND Transplant Surgery
DX: C22.0 Liver cell carcinoma (principal); J98.11 Atelectasis; K83.8 Other specified diseases of biliary tract; E88.2 Lipomatosis, not elsewhere classified; M25.78 Osteophyte, vertebrae; M47.816 Spondylosis without myelopathy or radiculopathy, lumbar region; K40.90 Unilateral inguinal hernia, without obstruction or gangrene, not specified as recurrent; R16.1 Splenomegaly, not elsewhere classified; R07.9 Chest pain, unspecified; Z94.4 Liver transplant status; Z90.49 Acquired absence of other specified parts of digestive tract
CPT/HCPCS: 71250; 74178; Q9967